=== PATIENT | male | born 1955 | race Two or more races ===

== ENCOUNTER → 2024-05-10 | Outpatient (CLI) | payer OTHER, MEDICAID, SELFPAY ==
[2024-05-10 09:27] LABS: Basophils % (Auto) 1 % (0-2.5); Eosinophils # (Auto) 0.2 Thou/mm3 (0.0-0.5); Eosinophils % (Auto) 2 % (0-10); Hematocrit 36.9 % (41.0-53.0); Hemoglobin 12.5 g/dL (13.5-16.0); Immature Granulocytes % (Auto) 0 % (0-0); Immature Granulocytes Auto 0.02 Thou/mm3 (0.00-0.00); Lymphocytes # (Auto) 2.6 Thou/mm3 (1.0-4.8); Lymphocytes % (Auto) 32 % (10-50); Mean Corpuscular HGB Conc 33.9 g/dl (31.0-37.0); Mean Corpuscular Hemoglobin 34.2 pg (25.0-35.0); Mean Corpuscular Volume 101 fL (80-100); Monocytes # (Auto) 0.7 Thou/mm3 (0.0-0.8); Monocytes % (Auto) 9 % (0-12); Neutrophils # (Auto) 4.5 Thou/mm3 (1.8-7.7); Neutrophils % (Auto) 56 % (37-80); Nucleated Red Blood Cell % 0 /100 WBC (0); Platelet Count 216 Thou/mm3 (140-440); RDW Standard Deviation 52.3 fL (35.1-43.9); Red Blood Count 3.66 Miln/mm3 (4.50-5.90); White Blood Count 8.1 Thou/mm3 (3.8-10.6)
[2024-05-10 09:40] LABS: Glucose Estimated Average 177 mg/dL (80-131); Hemoglobin A1C 7.8 % Hgb (4.8-6.0)
[2024-05-10 09:42] LABS: Alanine Aminotransferase 19 U/L (10-49); Albumin, Serum 4.6 gm/dL (3.4-4.8); Albumin/Globulin Ratio 1.9 (1.2-2.2); Alkaline Phosphatase 58 U/L (46-116); Anion Gap 8 (7-16); Aspartate Amino Transferase 19 U/L (0-34); BUN/Creatinine Ratio 16 Ratio (12-20); Blood Urea Nitrogen 14 mg/dL (9-23); Calcium 9.5 mg/dL (8.3-10.6); Calcium (Corrected) 9.5 mg/dL (8.5-10.1); Carbon Dioxide 27.5 mMol/L (20.0-31.0); Cardiac Risk Estimate 2.9 RATIO (4.0-6.7); Chloride 102 mMol/L (98-107); Cholesterol 112 mg/dL (132-200); Creatinine (Component) 0.9 mg/dL (0.6-1.3); Globulin 2.4 gm/dL (2.3-3.5); Glucose 166 mg/dL (74-106); HDL Cholesterol 38 mg/dL (40-60); LDL Cholesterol,Calculated 51 mg/dL (0-130); Osmolality,Calculated 278 (275-295); Sodium 137 mMol/L (136-145); Thyroid Stimulating Hormone 1.36 uIU/mL (0.55-4.78); Triglycerides 114 mg/dL (30-150); eGFR > 60 See Note
[2024-05-10 09:50] LABS: Collection Type, Urine Clean Catch; Squamous Epithelial Cell,Urine 0 /hpf (0-5)
[2024-05-10 10:21] LABS: Bilirubin,Urine Negative (Negative); Blood,Urine Negative (Negative); Clarity,Urine Clear (Clear/Hazy); Color,Urine Lt-Yellow (Lt Yel-Yel); Glucose, Urine 1+ (Negative); Ketones,Urine Negative (Negative); Leukocyte Esterase,Urine Negative (Negative); Nitrite,Urine Negative (Negative); Protein,Urine Trace (Neg - Trace); RBC,Urine 1 /hpf (0-3); Specific Gravity,Urine 1.015 (1.001-1.035); Urobilinogen,Urine Negative mg/dL (0.0-1.0); WBC,Urine 1 /hpf (0-5)
[2024-05-10 10:56] LABS: Creatinine MALB Rnd Ur 80 mg/dL (30-125); Microalbumin Creat Ratio 9 mg/gCrea (<30); Microalbumin, Random Urine 7 mg/L (0-300)
== END | disposition home or self-care (01) ==
PROVIDERS: PCP Family Medicine; Referring Provider Family Medicine; Visit Provider Family Medicine
DX: Z00.00 Encounter for general adult medical examination without abnormal findings (principal); E78.2 Mixed hyperlipidemia; E11.9 Type 2 diabetes mellitus without complications; I10 Essential (primary) hypertension
CPT/HCPCS: 36415; 80053; 80061; 81001; 82043; 82570; 83036; 84443; 85025

== ENCOUNTER → 2025-01-23 | Outpatient (CLI) | payer OTHER, MEDICAID, SELFPAY ==
[2025-01-23 08:35] LABS: Basophils # (Auto) 0.1 Thou/mm3 (0.0-0.2); Basophils % (Auto) 0 % (0-2.5); Eosinophils # (Auto) 0.5 Thou/mm3 (0.0-0.5); Eosinophils % (Auto) 3 % (0-10); Hematocrit 33.8 % (41.0-53.0); Hemoglobin 11.1 g/dL (13.5-16.0); Immature Granulocytes Auto 0.04 Thou/mm3 (0.00-0.00); Lymphocytes # (Auto) 4.0 Thou/mm3 (1.0-4.8); Lymphocytes % (Auto) 26 % (10-50); Mean Corpuscular HGB Conc 32.8 g/dl (31.0-37.0); Mean Corpuscular Hemoglobin 34.4 pg (25.0-35.0); Mean Corpuscular Volume 105 fL (80-100); Monocytes # (Auto) 0.9 Thou/mm3 (0.0-0.8); Monocytes % (Auto) 6 % (0-12); Neutrophils # (Auto) 9.7 Thou/mm3 (1.8-7.7); Neutrophils % (Auto) 64 % (37-80); Nucleated Red Blood Cell # 0.00 Thou/mm3 (0.00-0.00); Nucleated Red Blood Cell % 0 /100 WBC (0); Platelet Count 238 Thou/mm3 (140-440); RDW Standard Deviation 54.8 fL (35.1-43.9); Red Blood Count 3.23 Miln/mm3 (4.50-5.90); White Blood Count 15.1 Thou/mm3 (3.8-10.6)
[2025-01-23 08:51] LABS: Alanine Aminotransferase 12 U/L (10-49); Albumin, Serum 4.2 gm/dL (3.4-4.8); Albumin/Globulin Ratio 1.7 (1.2-2.2); Alkaline Phosphatase 73 U/L (46-116); Anion Gap 12 (7-16); Aspartate Amino Transferase 17 U/L (0-34); BUN/Creatinine Ratio 11 Ratio (12-20); Bilirubin,Total 0.9 mg/dL (0.3-1.2); Blood Urea Nitrogen 11 mg/dL (9-23); Calcium 9.1 mg/dL (8.3-10.6); Calcium (Corrected) 9.1 mg/dL (8.5-10.1); Carbon Dioxide 21.1 mMol/L (20.0-31.0); Cardiac Risk Estimate 3.0 RATIO (4.0-6.7); Chloride 107 mMol/L (98-107); Cholesterol 108 mg/dL (132-200); Creatinine (Component) 1.0 mg/dL (0.6-1.3); Globulin 2.5 gm/dL (2.3-3.5); Glucose 156 mg/dL (74-106); HDL Cholesterol 36 mg/dL (40-60); LDL Cholesterol,Calculated 50 mg/dL (0-130); Osmolality,Calculated 281 (275-295); Potassium 4.8 mMol/L (3.4-5.1); Sodium 140 mMol/L (136-145); Thyroid Stimulating Hormone 0.97 uIU/mL (0.55-4.78); Total Protein 6.7 gm/dL (5.7-8.2); Triglycerides 109 mg/dL (30-150); eGFR > 60 See Note
[2025-01-23 09:17] LABS: Glucose Estimated Average 220 mg/dL (80-131); Hemoglobin A1C 9.3 % Hgb (4.8-6.0)
== END | disposition home or self-care (01) ==
PROVIDERS: PCP Family Medicine; Referring Provider Family Medicine; Visit Provider Family Medicine
DX: Z00.00 Encounter for general adult medical examination without abnormal findings (principal); E11.65 Type 2 diabetes mellitus with hyperglycemia; E78.2 Mixed hyperlipidemia; I10 Essential (primary) hypertension; D64.9 Anemia, unspecified
CPT/HCPCS: 36415; 80053; 80061; 83036; 84443; 85025

== ENCOUNTER 2025-02-24 10:11 | Emergency (ER) | payer OTHER, SELFPAY ==
[2025-02-24 10:12] VITALS: BP 118/76; PULSE 118; RESP 20; TEMP 37.4; O2SAT 99; BMI 20.3
[2025-02-24 10:14] VITALS: PULSE 105; RESP 16; O2SAT 95
--- NOTE | 2025-02-24 11:10 | XR_ITS ---
Examination: CT brain head without contrast. 2-D sagittal coronal reconstructions Date and time of exam: 02/24/2025 at 12:27 p.m. INDICATION: Head trauma with frontal head and facial pain CTDI: vol (mGy): 50.2 DLP: (mGycm): 1002 Technique: Multiple CT axial sections of the brain have been obtained, 5 mm slice thickness. Contrast has not been administered. 2-D sagittal, coronal reconstructions have been obtained Low dose protocols were performed. One or more of the following dose reduction techniques were used; automated exposure control, adjustment of the mA and/or KV according to patient size, use of iterative reconstruction technique. Findings: Mild left frontal scalp swelling is present. No calvarial fracture. No intra-axial hemorrhage. No posttraumatic cerebral edema. No evidence for acute large vessel transcortical ischemic infarction. Global cerebral involutional changes are present. Nonspecific cerebral white matter hypoattenuation most likely represents sequela of chronic ischemic microangiopathy in this age demographic. No evidence for intracranial mass, mass effect, midline shift or findings suggestive of obstructive hydrocephalus. The basal cisterns are patent. No abnormal enlargement of the pituitary gland. Bilateral ICA and right vertebral atherosclerotic calcifications are present. Sequela of ocular lens replacement surgery noted. Impression: No evidence for acute intracranial hemorrhage or cerebral edema. Left frontal scalp swelling without evidence for skull fracture.
--- NOTE | 2025-02-24 11:10 | XR_ITS ---
Examination: CT maxillofacial, without intravenous contrast. 2-D sagittal reconstructions. 3-D reconstructions. Date and time of exam: 02/24/2025 at 12:27 p.m. INDICATION: Facial trauma, frontal head and facial pain COMPARISON: Concurrent head CT CTDI: vol (mGy): 23.1 DLP: (mGycm): 457 Technique: Multiple axial images of maxillofacial region, 3.0 mm slice thickness. 2-D sagittal and coronal reconstructions. 3-D reconstructions. Low dose protocols were performed. One or more of the following dose reduction techniques were used; automated exposure control, adjustment of the mA and/or KV according to patient size, use of iterative reconstruction technique. Findings: Possible nondisplaced fracture at the nasal bone tips. Punctate hyperdense foci in the overlying skin surface may represent foreign bodies. Regional soft tissue swelling is present. The anterior maxillary spine is intact. Elsewhere, no acute maxillofacial fracture. The globes and orbits and zygomatic arches are intact. No fracture or dislocation of the mandible. Sequela of functional endoscopic sinus surgery identified bilaterally related to maxillary antrostomy/uncinectomy. Mild mucosal hypertrophy is present in the maxillary sinuses predominate along the alveolar recesses. No masses or fluid levels in the paranasal sinuses. IMPRESSION: Possible nondisplaced fracture at the nasal bone tips. Punctate hyperdense foci in the overlying skin surface may represent foreign bodies. Regional soft tissue swelling is present. Elsewhere, no acute maxillofacial fracture.
--- NOTE | 2025-02-24 11:51 | PD.EDFALL ---
ED Fall Injury RME/HPI General Chief Complaint: Fall Stated Complaint: FALL Time Seen by Provider: 02/24/25 10:57 Arrival date/time: 02/24/25 10:11 Limitations: no limitations RME / HPI RME / HPI Narrative: 70 year old male with history of CAD s/p CABG, hypertension, diabetes, hyperlipidemia presents to the ED BIBA from home for evaluation after ground level fall today. Reports striking his face on the floor resulting in laceration to the left eyebrow. No LOC reported. No prolonged downtime and states he was able to stand and ambulatory with assistance. No neck pain. No other injuries or complaints reported. Related Data Home Medications ?Medication ?Instructions ?Recorded ?Confirmed atorvastatin 10 mg tablet (Lipitor) 10 mg PO DAILY #0 tabs 08/05/14 09/12/19 ramipril 2.5 mg capsule (Altace) 2.5 mg PO AC #0 caps 08/05/14 09/12/19 empagliflozin 10 mg tablet 10 mg PO QDAY 03/09/18 09/12/19 (Jardiance) sitagliptin phosphate 100 mg 100 mg PO QDAY 05/04/18 09/12/19 tablet (Januvia) aspirin 81 mg chewable tablet 81 mg PO QDAY 09/12/19 09/12/19 Previous Rx's ?Medication ?Instructions ?Recorded ibuprofen 600 mg tablet 600 mg PO Q8H PRN fever or pain 05/04/18 #30 tabs sulfamethoxazole 800 1 tab PO BID #14 tabs 05/04/18 mg-trimethoprim 160 mg tablet (Bactrim DS) loperamide 2 mg capsule (Imodium 2 mg PO QID PRN loose stool #10 09/08/19 A-D) caps ondansetron HCl 4 mg tablet 4 mg PO QID PRN nausea and 09/08/19 (Zofran) vomiting #10 tabs dicyclomine 10 mg capsule 10 mg PO TID #15 caps 09/12/19 ibuprofen 600 mg tablet 600 mg PO TID PRN pain #30 tabs 09/14/22 cephalexin 250 mg capsule 250 mg PO Q6H 5 days #20 caps 02/24/25 Allergies Allergy/AdvReac Type Severity Reaction Status Date / Time No Known Allergies Allergy Verified 02/24/25 10:18 Review of Systems Review of Systems Systems Reviewed: All systems reviewed, normal except as documented Past Medical History Past Medical History CARDIAC: Positive Cardiac Disorders, Hypercholesterolemia and Hypertension ENT: Positive Cataracts ENDOCRINE: Positive Endocrine Disorders and Diabetes Mellitus Type 2 Surgical History SURGICAL: Positive Coronary Artery Bypass Graft Social History SMOKING STATUS: Current every day smoker SUBSTANCE USE: does not use ED Exam General Limitations: Present no limitations General appearance: Present alert and in no apparent distress Head Head exam: Present normocephalic and other (Abrasion to the left forehead/bahai and abrasion to the mid portion of nose, no facial tenderness ) Eye Eye exam: Present normal appearance, PERRL and EOMI ENT ENT exam: Present normal exam, normal oropharynx and mucous membranes moist Neck Neck exam: Present normal inspection, full ROM and trachea midline Chest Chest inspection: Present normal inspection and symmetric chest wall rise Respiratory Respiratory exam: Present normal lung sounds bilaterally Cardiovascular Cardiovascular exam: Present regular rate, normal rhythm and normal heart sounds Abdominal Exam Abdominal exam: Present soft and normal bowel sounds Extremities Exam Extremities exam: Present normal inspection and full ROM Back Exam Back exam: Present normal inspection and full ROM Neurological Exam Neurological exam: Present alert, oriented X3 and CN II-XII intact Psychiatric Psychiatric exam: Present normal affect and normal mood Skin Skin exam: Present warm, dry, intact and normal color Course Quality Measures none Orders Category Date Time Status CT facial bones wo con Stat Exams 02/24/25 11:[address] head/brain wo con Stat Exams 02/24/25 11:10 Completed Bacitracin Oint pkt Med 02/24/25 13:13 Discontinued 1 gm TOP X1 ONE Vital Signs Vital signs: Vital Signs Temperature 99.4 F 02/24/25 10:12 Pulse Rate 118 H 02/24/25 10:12 Respiratory Rate 20 02/24/25 10:12 Blood Pressure 118/76 02/24/25 10:12 Pulse Oximetry (%) 99 02/24/25 10:12 Oxygen Delivery Method Room Air 02/24/25 10:12 Pulse ox is 99% on room air which is adequate. Fall MDM Narrative MDM Narrative:: Kamille Rodriguez am scribing for and in the presence of Dr. Trinh. Patient data External records reviewed:: [facility] previous records and EMS form Clinical information provided by:: patient Social determinants that could affect healthcare access:: none Patient has the following chronic illnesses:: CAD s/p CABG, hypertension, diabetes, hyperlipidemia How is presenting disease/condition affected by chronic disease/condition?: uneffected by Evaluation data The following diagnostics were reviewed and interpreted by me:: lab results and radiology exam(s) Lab and/or radiology exams considered but not ordered:: None Interpretation Summary: Ordering Physician: Sachin Trinh MD Date of Service: 02/24/25 Procedure(s): CT facial bones wo con Accession Number(s): [id number] cc: Sachin Trinh MD; Pelon Duque MD; Wiliam Nelson DO~ Examination: CT maxillofacial, without intravenous contrast. 2-D sagittal reconstructions. 3-D reconstructions. Date and time of exam: 02/24/2025 at 12:27 p.m. INDICATION: Facial trauma, frontal head and facial pain COMPARISON: Concurrent head CT CTDI: vol (mGy): 23.1 DLP: (mGycm): 457 Technique: Multiple axial images of maxillofacial region, 3.0 mm slice thickness. 2-D sagittal and coronal reconstructions. 3-D reconstructions. Low dose protocols were performed. One or more of the following dose reduction techniques were used; automated exposure control, adjustment of the mA and/or KV according to patient size, use of iterative reconstruction technique. Findings: Possible nondisplaced fracture at the nasal bone tips. Punctate hyperdense foci in the overlying skin surface may represent foreign bodies. Regional soft tissue swelling is present. The anterior maxillary spine is intact. Elsewhere, no acute maxillofacial fracture. The globes and orbits and zygomatic arches are intact. No fracture or dislocation of the mandible. Sequela of functional endoscopic sinus surgery identified bilaterally related to maxillary antrostomy/uncinectomy. Mild mucosal hypertrophy is present in the maxillary sinuses predominate along the alveolar recesses. No masses or fluid levels in the paranasal sinuses. IMPRESSION: Possible nondisplaced fracture at the nasal bone tips. Punctate hyperdense foci in the overlying skin surface may represent foreign bodies. Regional soft tissue swelling is present. Elsewhere, no acute maxillofacial fracture. Dictated By: Wiliam Nelson DO Signed By: <Electronically signed by Wiliam Nelson DO in OV> 02/24/25 1247 Ordering Physician: Sachin Trinh MD Date of Service: 02/24/25 Procedure(s): CT head/brain wo con Accession Number(s): [id number] cc: Sachin Trinh MD; Pelon Duque MD; Wiliam Nelson DO~ Examination: CT brain head without contrast. 2-D sagittal coronal reconstructions Date and time of exam: 02/24/2025 at 12:27 p.m. INDICATION: Head trauma with frontal head and facial pain CTDI: vol (mGy): 50.2 DLP: (mGycm): 1002 Technique: Multiple CT axial sections of the brain have been obtained, 5 mm slice thickness. Contrast has not been administered. 2-D sagittal, coronal reconstructions have been obtained Low dose protocols were performed. One or more of the following dose reduction techniques were used; automated exposure control, adjustment of the mA and/or KV according to patient size, use of iterative reconstruction technique. Findings: Mild left frontal scalp swelling is present. No calvarial fracture. No intra-axial hemorrhage. No posttraumatic cerebral edema. No evidence for acute large vessel transcortical ischemic infarction. Global cerebral involutional changes are present. Nonspecific cerebral white matter hypoattenuation most likely represents sequela of chronic ischemic microangiopathy in this age demographic. No evidence for intracranial mass, mass effect, midline shift or findings suggestive of obstructive hydrocephalus. The basal cisterns are patent. No abnormal enlargement of the pituitary gland. Bilateral ICA and right vertebral atherosclerotic calcifications are present. Sequela of ocular lens replacement surgery noted. Impression: No evidence for acute intracranial hemorrhage or cerebral edema. Left frontal scalp swelling without evidence for skull fracture. Dictated By: Wiliam Nelson DO Signed By: <Electronically signed by Wiliam Nelson DO in OV> 02/24/25 1250 Medications / Prescriptions Medications or Prescriptions considered but not ordered:: None Medication administrations:: Medication Administration History Discontinued Medications Bacitracin (Bacitracin Oint 1 Gm Packet) 1 gm TOP X1 ONE Stop: 02/24/25 13:14 Last Admin: 02/24/25 13:29 Dose: 1 gm Documented By: KARLA See above Consultations Consultation(s) initiated? (list below): No Diagnosis Fall Differential Diagnosis: syncope, compression fracture and other (fall, laceration, abrasion) Most likely diagnosis given after review of the tests above:: Abrasion of face Closed fracture of nasal bone Admission Indicated Admission indicated?: not indicated Explain why admission is indicated or not indicated:: With no condition needing emergent intervention, there was no indication for admission. Admission Request Was there a request for admission?: No Disposition Plan Disposition Plan: Discharge Discharge Attestation Discharge Attestation: The patient and all family members were given an opportunity to ask questions and understood the discharge instructions. Discharge instructions specifically effects, indications for sooner follow up or return to the emergency department, and the expected course of current diagnosis. Patient condition: Stable Discharge Plan Plan Patient Disposition: HOME (Self Care) Patient condition on transfer: Stable Prescriptions/Referrals Prescriptions/Med Rec: New cephalexin 250 mg capsule 250 mg PO Q6H 5 Days Qty: 20 0RF No Action atorvastatin [Lipitor] 10 MG tablet 10 mg PO DAILY Qty: 0 ramipril [Altace] 2.5 MG capsule 2.5 mg PO AC Qty: 0 Jardiance 10 mg Tablet 10 mg PO QDAY Januvia 100 mg Tablet 100 mg PO QDAY sulfamethoxazole-trimethoprim [Bactrim DS] 800-160 mg tablet 1 tab PO BID Qty: 14 0RF ibuprofen 600 mg tablet 600 mg PO Q8H PRN (Reason: fever or pain) Qty: 30 0RF loperamide [Imodium A-D] 2 mg capsule 2 mg PO QID PRN (Reason: loose stool) Qty: 10 0RF Rx Instructions: after each loose stool until symptoms controlled;do not exceed 16 mg total dose in 24 hrs ondansetron HCl [Zofran] 4 mg tablet 4 mg PO QID PRN (Reason: nausea and vomiting) Qty: 10 0RF aspirin 81 mg Tablet,Chewable 81 mg PO QDAY dicyclomine 10 mg capsule 10 mg PO TID Qty: 15 0RF ibuprofen 600 mg tablet 600 mg PO TID PRN (Reason: pain) Qty: 30 0RF Referrals: Pelon Duque MD [Primary Care Provider, Family Practice] - In 1 week Problem List Clinical Impression: Abrasion of face, Closed fracture nasal bone Patient/Caregiver Discharge Instructions Discharge Activity: activity as tolerated Education Materials: ED Abrasions Additional Instructions: Please wash your nasal and left forehead wound twice daily with soap and water. Place bacitracin ointment on the wounds twice daily after washing. You can buy the bacitracin ointment at the pharmacy [id number]. For pain please take Tylenol 500 mg 1 to 2 tablets every 6 hours as needed for pain. Please take your medication which is an antibiotic 4 times a day for 5 days. Follow-up with your doctor in 3 to 4 days. Print Language: Maltese Stand Alone Forms: Laura Award Info., Patient Portal Info Letter
[2025-02-24 12:38] VITALS: BP 143/84; PULSE 90; RESP 19; TEMP 36.8; O2SAT 98
[2025-02-24] MEDS: BACITRACIN OINT 1 GM PACKET TOP (13:29)
== END 2025-02-24 13:30 | disposition home or self-care (01) ==
PROVIDERS: Emergency Provider Family Medicine; PCP Family Medicine
DX: S00.81XA Abrasion of other part of head, initial encounter (principal); S02.2XXA Fracture of nasal bones, initial encounter for closed fracture; W18.30XA Fall on same level, unspecified, initial encounter; E78.5 Hyperlipidemia, unspecified; I25.10 Atherosclerotic heart disease of native coronary artery without angina pectoris; E11.9 Type 2 diabetes mellitus without complications; I10 Essential (primary) hypertension; Z95.1 Presence of aortocoronary bypass graft
CPT/HCPCS: 70450; 70486; 99283; A9270